=== PATIENT | male | born 1955 | race Caucasian/White ===

== ENCOUNTER 2017-10-02 09:08 | Outpatient (CLI) | payer BC ==
[2017-10-02 10:19] LABS: Hemoglobin 13.4 g/dL (14.0-18.0); Mean Corpuscular HGB CONC 35.1 g/dL (32.0-36.0); Mean Corpuscular Hemoglobin 33.6 pg (27.0-31.0); Mean Corpuscular Volume 95.9 fL (78.0-98.0); Mean Platelet Volume 8.9 fL (7.4-10.4); Platelet Count 142 thou/uL (130-400); RBC Distribution Width 12.4 % (11.5-14.5); Red Blood Cell (RBC) Count 3.99 mill/uL (4.70-6.10); White Blood Cell (WBC) Count 4.4 thou/uL (4.8-10.8)
[2017-10-02 10:37] LABS: PTT 29.4 SEC (22.9-36.1); Prothrombin Time 13.3 SEC (12.0-14.7)
[2017-10-02 10:40] LABS: Anion Gap 16 mmol/L (10-20); BUN (Urea Nitrogen) 27 mg/dL (8.4-25.7); Calc. Creatinine Clearance 0 mL/min (70-130); Carbon Dioxide 20 mmol/L (23-31); Chloride 108 mmol/L (98-107); Estimated GFR-MDRD 44; Glucose 91 mg/dL (80-115); Potassium 4.1 mmol/L (3.5-5.1); Sodium 140 mmol/L (136-145)
--- NOTE | 2017-10-03 15:14 | EKG ---
Test Reason : Blood Pressure : / mmHG Vent. Rate : 059 BPM Atrial Rate : 059 BPM P-R Int : 150 ms QRS Dur : 072 ms QT Int : 416 ms P-R-T Axes : 045 033 -15 degrees QTc Int : 411 ms Sinus bradycardia Otherwise normal ECG Confirmed by AKILAH ROB MD ([id number]) on 10/03/2017 3:14:03 PM Referred By: [facility] Confirmed By:AKILAH ROB MD
== END 2017-10-02 09:09 | disposition home or self-care (01) ==
LOC: LABBT 09:08
PROVIDERS: ATTEND Surgery
DX: Z01.818 Encounter for other preprocedural examination (principal); M54.12 Radiculopathy, cervical region; M48.02 Spinal stenosis, cervical region
CPT/HCPCS: 80048; 85027; 85610; 85730; 93005; 93010

== ENCOUNTER 2017-10-09 09:19 | Observation (INO) | payer BC ==
[2017-10-02 09:16] VITALS: BMI 29.4
[2017-10-09] MEDS ORDERED: CEFAZOLIN/Water 2 GM/20 ML SYRINGE ONE (09:58)
[2017-10-09] MEDS ORDERED: Fentanyl 100 MCG/2 ML VIAL ONE ×4 (11:18→15:42)
[2017-10-09] MEDS ORDERED: Sodium Chloride 0.9% 10 ML ONE (12:42)
[2017-10-09] MEDS ORDERED: Thrombin 5000 UNITS/5 ML VIAL ONE (12:42)
[2017-10-09] MEDS ORDERED: Ondansetron HCl/PF 4 MG/2 ML Vial ONE (14:41)
[2017-10-09] MEDS ORDERED: Lidocaine 1% PF 5 ML VIAL ONE ×2 (14:41)
[2017-10-09] MEDS ORDERED: PROPOFOL 200 MG/20 ML VIAL ONE (14:41)
[2017-10-09] MEDS ORDERED: Glycopyrrolate 0.2 MG/ML 5 ML SYRINGE ONE (14:41)
[2017-10-09] MEDS ORDERED: Dexamethasone 20 MG/5 ML VIAL ONE (14:41)
[2017-10-09] MEDS ORDERED: Ondansetron HCl/PF 4 MG/2 ML Vial IVP PRN (14:51)
[2017-10-09] MEDS ORDERED: Promethazine HCl 25 MG/ML VIAL SLOW IVP PRN (14:51)
[2017-10-09] MEDS ORDERED: Promethazine HCl 25 MG/ML VIAL IM PRN ×2 (14:51→15:23)
[2017-10-09] MEDS ORDERED: Meperidine HCl/PF 25 MG/ML VIAL SLOW IVP PRN (14:51)
[2017-10-09] MEDS ORDERED: Morphine Sulfate 2 MG/ML SYRINGE SLOW IVP PRN (14:51)
[2017-10-09] MEDS ORDERED: HYDROmorphone 2 MG/ML VIAL SLOW IVP PRN (14:51)
[2017-10-09] MEDS ORDERED: Midazolam HCl 2 mg/2 ml Vial ONE (15:13)
[2017-10-09] MEDS ORDERED: Fleet Enema 133 ML BOT PR PRN (15:23)
[2017-10-09] MEDS ORDERED: Bisacodyl 10 MG SUPP PR PRN (15:23)
[2017-10-09] MEDS ORDERED: tiZANidine HCl 4 MG TAB PO PRN (15:23)
[2017-10-09] MEDS ORDERED: traMADol HCl 50 MG TAB PO PRN (15:23)
[2017-10-09] MEDS ORDERED: Acetaminophen 325 MG TAB PO PRN (15:23)
[2017-10-09] MEDS ORDERED: Acetaminophen/Codeine 30-300mg Tablet PO PRN (15:23)
[2017-10-09] MEDS ORDERED: Milk Of Magnesia 30 ML UDCUP PO PRN (15:23)
[2017-10-09] MEDS ORDERED: HYDROcodone/Acetaminophen 7.5/325 mg Tablet PO PRN (15:23)
[2017-10-09] MEDS ORDERED: Mag-Al 1200 mg/1200 mg/30 ML UDCUP PO PRN (15:23)
[2017-10-09] MEDS: Sodium Chloride 0.9% 1,000 ML IV SCH (17:02)
--- NOTE | 2017-10-09 18:08 | OP ---
OR: 12 WOUND TYPE: Type 1 wound. SURGEON: Leonardo Nichole MD. 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 PROCEDURES: 1. Anterior C4-C5 diskectomy with placement of interbody spacer for arthrodesis C4-C5 packed with lo maribeth bone autograft obtained from same incision and allograft. 2. Exploration of spinal fusion C5-C6, after removal of plate, C5-C6. 3. Anterior cervical plate and screw fixation, C4, C5, C6. 4. Use of operative microscope for microdissection. PROCEDURE IN DETAIL: After informed consent was obtained from the patient, the patient was brought t o OR 12. Proper patient pause and identification was carried out. He was placed in excellent genera l endotracheal anesthesia and positioned supine on the OR table. All appropriate points were padded. We identified the prior anterior cervical wound and this was extended slightly cephalad and caudal. This region was sterilely cleansed, prepared, and draped. Proper patient pause and identification was carried out. The wound was then opened with a combination of sharp, monopolar and blunt dissecti on proceeded through the scar tissue lateral to the tracheoesophageal bundle and larynx and pharynx a nd medial to the right carotid sheath. We identified the prevertebral layer of deep cervical fascia and the prior C5-C6 plate. The screws at C5 were broken midshaft, plate was removed. The screws at C6 were removed. The distal shaft of the C5 screws obviously was not able to be removed. I assessed the interbody spacer and while there was bone growth that was not fusion at this segment as expected given the fractured screws. I then turned our attention to distraction at C4-C5 and following this, a diskectomy was performed at C4-C5 with excellent decompression of the neural elements, we then pre pared the endplates and interbody spacer of appropriate dimension packed with local bone autograft ob tained from the same incision and allograft was placed at C4-C5. Anterior cervical plate and screw f ixation of C4, C5, C6, then occurred. I was able to only get one screw at the right C5 segment, give n the 2 prior screws and the segment in the very short cephalad to caudal distance of the patient C5 segment. We were satisfied with our construct. Copious irrigation occurred throughout as did violeta brown hemostasis. The wound was then closed in anatomic layers following the placement of a drain. T he patient then emerged from anesthesia.
[2017-10-09] MEDS: CEFAZOLIN/Water 2 GM/20 ML SYRINGE SLOW IVP SCH (18:50)
[2017-10-09] MEDS ORDERED: Chloraseptic Spray 180 ml Bottle PO PRN (19:56)
[2017-10-10] MEDS: CEFAZOLIN/Water 2 GM/20 ML SYRINGE SLOW IVP SCH ×2 (02:18→09:37)
[2017-10-10] MEDS: Sodium Chloride 0.9% 1,000 ML IV SCH (05:30)
[2017-10-10 07:49] VITALS: BP 123/73; TEMP 97.6
[2017-10-10] MEDS ORDERED: Multivit, Therapeutic 1 TAB PO SCH (09:00)
[2017-10-10] MEDS ORDERED: Metamucil PACK PO SCH (09:00)
[2017-10-10] MEDS ORDERED: Stress 600 With Zinc 1 TAB PO SCH (09:00)
[2017-10-10] MEDS ORDERED: Potassium [Potassium] 99 MG PO SCH (09:00)
[2017-10-10] MEDS ORDERED: Loratadine/Pseudoephedrine 10/240 mg Tablet PO SCH (09:00)
[2017-10-10] MEDS ORDERED: Lisinopril/Hydrochlorothiazide 20/25 mg Tablet PO SCH (09:00)
[2017-10-10] MEDS ORDERED: SAW PALMETTO FRUIT 450 MG PO SCH (09:00)
--- NOTE | 2017-10-10 09:23 | PRG ---
DATE OF SERVICE: 10/10/2017 Mr. Lopez is postoperative day 1 from C4-C6 replating for pseudoarthrosis and C4-C5 diskectomy and fus ion for proximal adjacent segment disease. He states his arm symptoms in particular into his hands h ave improved. He is wearing a well-fitting collar. His drain output has been 25 mL overnight. Neur ologically, he is doing well with mild dysphonia and tolerating orals. We will plan for dismissal to day following removal of drain. I went over intra and postoperative issues.
== END 2017-10-10 10:10 | disposition home or self-care (01) ==
LOC: SDC 09:19 → SJJU 16:44
PROVIDERS: ADMIT Surgery; ATTEND Surgery
PROC: 0RG10A0 Fusion of Cervical Vertebral Joint with Interbody Fusion Device, Anterior Approach, Anterior Column, Open Approach (ICD-10-PCS; principal; 2017-10-10)
PROC: 0RG1070 Fusion of Cervical Vertebral Joint with Autologous Tissue Substitute, Anterior Approach, Anterior Column, Open Approach (ICD-10-PCS; 2017-10-10)
PROC: 0RT30ZZ Resection of Cervical Vertebral Disc, Open Approach (ICD-10-PCS; 2017-10-10)
DX: T84.216A Breakdown (mechanical) of internal fixation device of vertebrae, initial encounter (principal); M96.0 Pseudarthrosis after fusion or arthrodesis; M54.12 Radiculopathy, cervical region; M48.02 Spinal stenosis, cervical region; Z88.2 Allergy status to sulfonamides; Z79.899 Other long term (current) drug therapy
CPT/HCPCS: 76001; 96361; 96374; 96375; 96376; A4216; C1713; C1776; G0378; J1100; J2001; J2250; J2405; J2704; J3010; J3490

== ENCOUNTER 2017-12-05 09:30 | Outpatient (CLI) | payer BC ==
--- NOTE | 2017-12-05 14:04 | RAD ---
CERVICAL SPINE AP AND LATERAL STANDARD 12/05/17 HISTORY: M54.2 - cervicalgia. COMPARISON: Radiographs 10/28/13. FINDINGS: There is new anterior cervical spine hardware from C4-C6 with discectomy changes. No evidence for telly dware complication. Mild straightening of the cervical spine. IMPRESSION: Satisfactory postoperative appearance. POS: OFF
== END 2017-12-05 09:31 | disposition home or self-care (01) ==
LOC: TBSIIMAG 09:30
PROVIDERS: ATTEND Surgery
DX: M54.2 Cervicalgia (principal); Z98.890 Other specified postprocedural states
CPT/HCPCS: 72040

== ENCOUNTER 2020-04-14 09:44 | Outpatient (CLI) | payer BC | END 2020-04-14 09:45 | disposition home or self-care (01) | LOC: SCSMRI 09:44 | PROVIDERS: ATTEND Surgery | DX: M50.30 Other cervical disc degeneration, unspecified cervical region (principal); M54.2 Cervicalgia; M25.519 Pain in unspecified shoulder; M47.812 Spondylosis without myelopathy or radiculopathy, cervical region; M48.02 Spinal stenosis, cervical region; Z98.1 Arthrodesis status | CPT/HCPCS: 72050; 72125; 72141 ==

== ENCOUNTER 2022-03-15 05:42 | Observation (INO) | payer BC, MEDICARE ==
[2022-03-15] MEDS ORDERED: Sodium Chloride 0.9% 100 ML ONE (06:49)
[2022-03-15] MEDS ORDERED: CEFAZOLIN 2 GM VIAL ONE (06:49)
[2022-03-15] MEDS ORDERED: Phenylephrine 10 MG/ML VIAL ONE (06:53)
[2022-03-15] MEDS ORDERED: SUGAMMADEX SODIUM 200 MG/2 ML VIAL ONE (06:53)
[2022-03-15] MEDS ORDERED: fentaNYL PF 100 MCG/2 ML SYRINGE ONE (06:53)
[2022-03-15] MEDS ORDERED: Famotidine/PF 20 mg/2ml Vial ONE (06:53)
[2022-03-15] MEDS ORDERED: Thrombin 5000 UNITS/5 ML VIAL ONE ×4 (06:57→09:22)
[2022-03-15] MEDS ORDERED: Vancomycin 1 GM VIAL ONE (06:57)
[2022-03-15 07:04] LABS: SARS-CoV-2 NAA Rapid Test Not Detected (NotDetected)
[2022-03-15] MEDS ORDERED: Metoclopramide HCl 10 MG/2 ML VIAL ONE (07:25)
[2022-03-15] MEDS ORDERED: Rocuronium Bromide 10 MG/ML (10ML VIAL) ONE (07:25)
[2022-03-15] MEDS ORDERED: Lidocaine 1% PF 5 ML VIAL ONE (07:25)
[2022-03-15] MEDS ORDERED: Dexamethasone 20 MG/5 ML VIAL ONE (07:25)
[2022-03-15] MEDS ORDERED: PHENYLEPHRINE-NS 100 MCG/ML 10 ML SYRINGE ONE (07:25)
[2022-03-15] MEDS ORDERED: Ketorolac Tromethamine 30 MG/ML VIAL ONE (07:25)
[2022-03-15] MEDS ORDERED: PROPOFOL 200 MG/20 ML VIAL ONE (07:25)
[2022-03-15] MEDS ORDERED: Ondansetron PF 4 MG/2 ML Vial ONE (07:25)
[2022-03-15] MEDS ORDERED: ePHEDrine 50 MG/ML VIAL ONE (07:25)
[2022-03-15] MEDS ORDERED: ePHEDrine Sulfate 50 MG/10 ML VIAL ONE (09:03)
[2022-03-15] MEDS ORDERED: HYDROcodone/Acetaminophen 7.5/325 mg Tablet PO PRN (10:12)
[2022-03-15] MEDS ORDERED: diphenhydrAMINE 25 MG CAP PO PRN (10:12)
[2022-03-15] MEDS ORDERED: Ondansetron PF 4 MG/2 ML Vial IVP PRN (10:12)
[2022-03-15] MEDS ORDERED: traMADol HCl 50 MG TAB PO PRN (10:12)
[2022-03-15] MEDS ORDERED: Acetaminophen/Codeine 30-300mg Tablet PO PRN (10:12)
[2022-03-15] MEDS ORDERED: Morphine 2 MG/ML VIAL SLOW IVP PRN (10:12)
[2022-03-15] MEDS ORDERED: Ketorolac Tromethamine 30 MG/ML VIAL IVP PRN (10:12)
[2022-03-15] MEDS ORDERED: hydrALAZINE 20 MG/ML VIAL SLOW IVP PRN (10:17)
[2022-03-15] MEDS ORDERED: Fentanyl 250 MCG/5 ML VIAL ONE (10:37)
[2022-03-15] MEDS ORDERED: HYDROmorphone 0.5 MG/0.5 ML SYRINGE ONE (11:26)
[2022-03-15] MEDS ORDERED: Non-Formulary Medication 1 EACH PO PRN (12:36)
[2022-03-15] MEDS ORDERED: HYDROmorphone 2 MG/ML VIAL SLOW IVP PRN (12:45)
[2022-03-15] MEDS ORDERED: Ondansetron HCl/PF 4 MG/2 ML Vial IVP PRN (12:45)
[2022-03-15] MEDS ORDERED: Promethazine HCl 25 MG/ML VIAL IM PRN (12:45)
[2022-03-15] MEDS: CEFAZOLIN 2 GM in Sodium Chloride 0.9% 100 ML IVPB SCH ×2 (15:57→22:56)
[2022-03-15] MEDS: Sodium Chloride 0.9% 1,000 ML IV SCH (15:58)
[2022-03-15 16:08] VITALS: BMI 27.8
[2022-03-15] MEDS: Acetaminophen 325 MG TAB PO PRN (21:22)
[2022-03-15] MEDS: tiZANidine HCl 4 MG TAB PO PRN (21:27)
[2022-03-16] MEDS: Sodium Chloride 0.9% 1,000 ML IV SCH (02:22)
[2022-03-16] MEDS: tiZANidine HCl 4 MG TAB PO PRN (06:26)
[2022-03-16] MEDS: Acetaminophen 325 MG TAB PO PRN (06:26)
[2022-03-16 09:00] VITALS: BP 143/71; TEMP 98.3
== END 2022-03-16 10:00 | disposition home or self-care (01) ==
LOC: SDC 05:42 → SURG B 10:12
PROVIDERS: ADMIT Surgery; ATTEND Surgery
PROC: 01NB0ZZ Release Lumbar Nerve, Open Approach (ICD-10-PCS; principal; 2022-03-15)
DX: M48.061 Spinal stenosis, lumbar region without neurogenic claudication (principal); M51.16 Intervertebral disc disorders with radiculopathy, lumbar region; I10 Essential (primary) hypertension; F17.220 Nicotine dependence, chewing tobacco, uncomplicated; Z79.899 Other long term (current) drug therapy; Z88.2 Allergy status to sulfonamides; Z95.1 Presence of aortocoronary bypass graft; Z98.1 Arthrodesis status; Z20.822 Contact with and (suspected) exposure to COVID-19
CPT/HCPCS: 96365; 96376; C1776; G0378; J1100; J1170; J1885; J2370; J2405; J2704; J2765; J3010; J3370; J3490; S0028; U0002

== ENCOUNTER 2023-01-27 13:36 | Outpatient (CLI) | payer BC | END 2023-01-27 13:37 | disposition home or self-care (01) | LOC: SCSMRI 13:36 | PROVIDERS: ATTEND Surgery | DX: M79.89 Other specified soft tissue disorders (principal); M47.816 Spondylosis without myelopathy or radiculopathy, lumbar region; M48.061 Spinal stenosis, lumbar region without neurogenic claudication; M48.07 Spinal stenosis, lumbosacral region | CPT/HCPCS: 72158 ==